=== PATIENT | male | born 2000 | race Caucasian/White ===

== ENCOUNTER 2022-05-15 14:18 | Emergency (ER) | payer OTHER ==
[2022-05-15] MEDS ORDERED: Ibuprofen 600 MG TAB ONE (15:02)
[2022-05-15] MEDS ORDERED: Sodium Chloride 0.9% 1,000 ML ONE (15:05)
== END 2022-05-15 16:32 | disposition home or self-care (01) ==
LOC: MADERS 14:18
DX: J10.1 Influenza due to other identified influenza virus with other respiratory manifestations (principal); R55 Syncope and collapse; Z20.822 Contact with and (suspected) exposure to COVID-19
CPT/HCPCS: 87081; 87430; 87804; 96360; J7050; U0003; U0005